=== PATIENT | female | born 1955 | race Caucasian/White ===

== ENCOUNTER 2019-03-03 12:41 | Emergency (ER) | payer MEDICAID ==
[~2019-03-03] VITALS: Ht 157.5 cm; Wt 97.5 kg
[2019-03-03 13:13] VITALS: Ht 157.5 cm; Wt 97.5 kg
[2019-03-03 14:22] VITALS: BP 128/78
== END 2019-03-03 14:22 | disposition home or self-care (01) ==
LOC: ED 12:41
DX: R51 Headache (principal); K42.9 Umbilical hernia without obstruction or gangrene; Z98.890 Other specified postprocedural states

== ENCOUNTER 2020-06-09 07:54 | Emergency (ER) | payer OTHER ==
[~2020-06-09] VITALS: Ht 157.5 cm; Wt 84.4 kg
[2020-06-09 08:16] VITALS: BP 139/71; Ht 157.5 cm; Wt 84.4 kg
== END 2020-06-09 10:19 | disposition home or self-care (01) ==
LOC: ED 07:54
DX: S92.515A Nondisplaced fracture of proximal phalanx of left lesser toe(s), initial encounter for closed fracture (principal); I10 Essential (primary) hypertension; E11.9 Type 2 diabetes mellitus without complications; W23.0XXA Caught, crushed, jammed, or pinched between moving objects, initial encounter; Y93.89 Activity, other specified; Y92.89 Other specified places as the place of occurrence of the external cause; Y99.8 Other external cause status
CPT/HCPCS: Q0092